=== PATIENT | female | born 1980 | race Caucasian/White ===

== ENCOUNTER 2018-05-01 17:44 | Emergency (ER) | payer OTHER ==
[~2018-05-01] VITALS: Ht 167.6 cm; Wt 76.2 kg
[2018-05-01] MEDS ORDERED: PRENA1 CHEW TA1.4 MG (18:00)
== END 2018-05-02 00:07 | disposition home or self-care (01) ==
LOC: ER 17:44
DX: O26.892 Other specified pregnancy related conditions, second trimester (principal); R10.2 Pelvic and perineal pain; Z34.82 Encounter for supervision of other normal pregnancy, second trimester

== ENCOUNTER 2018-10-02 16:07 | Inpatient (IN) | payer OTHER ==
[~2018-10-02] VITALS: Ht 167.6 cm; Wt 86.6 kg
[~2018-10-02 16:07] MED LIST: PRENA1 CHEW TA1.4 MG
[2018-10-02] MEDS ORDERED: ZANTAC300 MG PO (19:34)
== END 2018-10-04 12:38 | disposition home or self-care (01) | DRG 998 ==
LOC: OBS/DEL 16:07 → LDR 10-03 16:53
PROVIDERS: ADMIT Obstetrics & Gynecology Obstetrics
PROC: 4A1HXCZ Monitoring of Products of Conception, Cardiac Rate, External Approach (ICD-10-PCS; principal; 2018-10-03)
PROC: BY4GZZZ Ultrasonography of Third Trimester, Multiple Gestation (ICD-10-PCS; 2018-10-03)
DX: O76 Abnormality in fetal heart rate and rhythm complicating labor and delivery (principal); O31.8X30 Other complications specific to multiple gestation, third trimester, not applicable or unspecified; O47.03 False labor before 37 completed weeks of gestation, third trimester; O30.003 Twin pregnancy, unspecified number of placenta and unspecified number of amniotic sacs, third trimester; Z34.83 Encounter for supervision of other normal pregnancy, third trimester

== ENCOUNTER 2018-10-07 15:02 | Inpatient (IN) | payer OTHER ==
[~2018-10-07] VITALS: Ht 167.6 cm; Wt 86.6 kg
[~2018-10-07 15:02] MED LIST changes: +ZANTAC300 MG PO
== END 2018-10-10 17:26 | disposition home or self-care (01) | DRG 785 ==
LOC: LDR 15:02 → OB/GYN 19:43
PROVIDERS: ADMIT Obstetrics & Gynecology Obstetrics
PROC: 0UL70ZZ Occlusion of Bilateral Fallopian Tubes, Open Approach (ICD-10-PCS; 2018-10-07)
PROC: 4A1HXCZ Monitoring of Products of Conception, Cardiac Rate, External Approach (ICD-10-PCS; 2018-10-07)
PROC: 10D00Z1 Extraction of Products of Conception, Low, Open Approach (ICD-10-PCS; principal; 2018-10-07 15:00)
DX: O82 Encounter for cesarean delivery without indication (principal); O30.003 Twin pregnancy, unspecified number of placenta and unspecified number of amniotic sacs, third trimester; Z3A.37 37 weeks gestation of pregnancy; Z37.2 Twins, both liveborn; Z30.2 Encounter for sterilization